=== PATIENT | female | born 1955 | race Caucasian/White ===

== ENCOUNTER → 2018-04-10 | Outpatient (CLI) | payer MEDICARE ==
[~2018-04-10] MED LIST: ASCO-96 PO; ASPI325T17 PO; CARV-39 PO; CHOL2000 PO; DABI150C PO; DIGO125T PO; DULO20CA45 PO; DULO60CA7 PO; ESCI10TA PO; ESTR1TAB15 PO; FURO20TA3 PO; FURO40TA6 PO; HYDR-3245 PO; LEVO88TA4 PO; LORA2TAB PO; LOSA25TA2 PO; MORP60CA17 PO; MULT-257 PO; NICO-486 TD; POTA10TA11 PO; POTA10TA31 PO; POTA20TA14 PO; SIMV40TA3 PO; albuterol
== END ==
LOC: CVU 09:59
PROVIDERS: ATTEND Internal Medicine Cardiovascular Disease
DX: I07.1 Rheumatic tricuspid insufficiency (principal); I48.91 Unspecified atrial fibrillation; I10 Essential (primary) hypertension; Z87.891 Personal history of nicotine dependence
CPT/HCPCS: 93306

== ENCOUNTER 2019-03-14 20:51 | Emergency (ER) | payer MEDICARE ==
[~2019-03-14] VITALS: Ht 185.4 cm; Wt 75.0 kg
--- NOTE | 2019-03-14 21:10 | NUR ---
EKG COMPLETED ON ARRIVAL. PT PLACED IN GOWN AND ON HEART MONITOR, BP CUFF, PULSE OX. PT STATES SHE HASN'T HAD PAIN MEDICATION FOR SEVERAL DAYS D/T LOSING DURING RECENT MOVE. STATES SHE WAS TOLD BY PMD SHE NEEDED TO MAKE POLICE REPORT PRIOR TO GETTING NEW SCRIPTS. PA IN TO SEE PT. CALL LIGHT WITHIN REACH, WARM BLANKET PROVIDED.
[2019-03-14] MEDS ORDERED: OXYcodone/APAP 5/325MG TABLET PO ONE (21:30)
--- NOTE | 2019-03-14 21:38 | NUR ---
URINE COLLECTED/SENT TO LAB. CALL LIGHT WITHIN REACH.
[2019-03-14 21:52] LABS: MICROSCOPIC NOT IND
[2019-03-14 21:52] LABS: BASOPHILS # (AUTO) 0.07 x10^3/uL (0-0.1); BASOPHILS % (AUTO) 1 % (0-1); EOSINOPHILS # (AUTO) 0.04 x10^3/uL (0-0.4); EOSINOPHILS % (AUTO) 1 % (1-7); LYMPHOCYTES # (AUTO) 2.18 x10^3/uL (1-3.4); LYMPHOCYTES % (AUTO) 29 % (22-44); MD NO; MEAN CORPUSCULAR HEMOGLOBIN 31.5 pg (27.0-34.8); MEAN CORPUSCULAR HGB CONC 33.2 g/dL (32.4-35.8); MEAN CORPUSCULAR VOLUME 94.9 fL (80-100); MEAN PLATELET VOLUME 8.1 fL (7.4-10.4); MONOCYTES # (AUTO) 0.84 x10^3/uL (0.2-0.8); MONOCYTES % (AUTO) 11 % (2-9); NEUTROPHILS # (AUTO) 4.37 x10^3/uL (1.8-6.8); NEUTROPHILS % (AUTO) 58 % (42-75); PLATELET COUNT 253 x10^3/uL (130-400); RED BLOOD COUNT 4.29 x10^6/uL (3.82-5.3)
[2019-03-14 21:54] LABS: CULTURE INDICATED? NO
[2019-03-14 22:03] LABS: ALANINE AMINOTRANSFERASE 34 U/L (12-78); ALBUMIN 3.8 g/dL (3.4-5.0); ANION GAP 5 mmol/L (5-15); CALCIUM 8.4 mg/dL (8.5-10.1); CHLORIDE 116 mmol/L (98-107); CREATININE 0.85 mg/dL (0.55-1.02)
[2019-03-14 22:08] LABS: ALKALINE PHOSPHATASE 43 U/L (45-117); BILIRUBIN,TOTAL 0.2 mg/dL (0.2-1.0); TOTAL PROTEIN 6.7 g/dL (6.4-8.2); TROPONIN I < 0.015 ng/mL (0.000-0.045)
--- NOTE | 2019-03-14 22:13 | NUR ---
REPORT FROM HERNÁN DUNLAP
--- NOTE | 2019-03-14 22:51 | NUR ---
PT TO CT
[2019-03-14] MEDS ORDERED: OXYcodone/APAP 5/325MG TABLET ONE (23:08)
--- NOTE | 2019-03-14 23:26 | NUR ---
PT MEDICATED FOR PAIN. VSS. CALL LIGHT IN REACH.
[2019-03-14 23:56] VITALS: BP 115/62
--- NOTE | 2019-03-15 00:46 | NUR ---
Patient given discharge instructions and they have confirmed that they understand the instructions. Patient ambulatory with steady gait.
== END 2019-03-15 00:48 | disposition home or self-care (01) ==
LOC: ED 23:59
DX: F11.20 Opioid dependence, uncomplicated (principal); Z90.710 Acquired absence of both cervix and uterus; I50.9 Heart failure, unspecified; I48.91 Unspecified atrial fibrillation; E78.5 Hyperlipidemia, unspecified
CPT/HCPCS: 36415; 70450; 71045; 80053; 81003; 83605; 83690; 83735; 83880; 84443; 84484; 85025; 93005; 99284